=== PATIENT | female | born 1960 | race Caucasian/White ===

== ENCOUNTER 2021-07-08 17:56 | Inpatient (IN) | payer BC ==
[~2021-07-08] VITALS: Ht 160 cm; Wt 69.0 kg
[2021-07-08] MEDS ORDERED: MORPHINE SULFATE 4 MG/ML CPJ (NOT FOR IM USE) IV STA (20:37)
[2021-07-08] MEDS ORDERED: MAGNESIUM/ALUMINUM HYDROXIDE/SIMETHICONE 30ML UDC PO STA (20:37)
[2021-07-08] MEDS ORDERED: FAMOTIDINE 20MG/2ML VIAL IV STA (20:37)
[2021-07-08 20:59] LABS: HEMATOCRIT. 35.8 % (36.0-48.0); HEMOGLOBIN. 12.5 g/dL (12.0-16.0); MEAN CORPUSCULAR HEMOGLOBIN 31.5 pg (28.0-32.0); MEAN CORPUSCULAR VOLUME 90.3 fL (81.0-99.0); MEAN PLATELET VOLUME 7.5 fl (7.4-10.4); PLATELET 303 x1000/uL (130-400); RED BLOOD CELL COUNT 3.97 mill/uL (4.2-5.4); RED CELL DISTRIBUTION WIDTH 13.7 % (11.6-14.6)
[2021-07-08 21:03] LABS: CHLORIDE 91 mEq/L (98-107)
[2021-07-08 21:30] LABS: PLATELET ESTIMATE NORMAL
[2021-07-08] MEDS ORDERED: CEFTRIAXONE 1 G PREMIX 50 ML IV ONE (22:00)
[2021-07-08] MEDS ORDERED: PIPERACILLIN/TAZOBACTAM 3.375GM/50ML PREMIX IV ONE (22:15)
[2021-07-08] MEDS ORDERED: PIPERACILLIN/TAZ 3.375G PREMIX 50 ML IV NR (22:18)
[2021-07-09] MEDS ORDERED: MORPHINE SULFATE 4 MG/ML CPJ (NOT FOR IM USE) IV PRN (02:00)
[2021-07-09] MEDS ORDERED: MORPHINE SULFATE 2 MG/ML CPJ (NOT FOR IM USE) IV PRN ×2 (02:00→05:05)
[2021-07-09] MEDS ORDERED: ONDANSETRON HCL 4MG/2ML INJ IV PRN ×2 (02:00→03:00)
[2021-07-09] MEDS ORDERED: HYDROCODONE/ACETAMINOPHEN 5/325MG TABLET PO PRN ×2 (02:00)
[2021-07-09] MEDS ORDERED: LABETALOL 5MG/ML SYR 20 MG/4 ML SYRINGE IV PRN (03:00)
[2021-07-09] MEDS ORDERED: MEPERIDINE HCL/PF 25MG/ML CPJ IV PRN (03:00)
[2021-07-09] MEDS ORDERED: HYDROMORPHONE HCL/PF 2MG/ML CPJ IV PRN (03:00)
[2021-07-09 04:00] VITALS: BP 102/61
[2021-07-09 04:38] VITALS: BP 102/61
[2021-07-09] MEDS: PIPERACILLIN/TAZOBACTAM 3.375G in DEXT 5% WATER 50ML IV SCH ×3 (05:14→21:22)
[2021-07-09] MEDS: DEXT 5%/0.45% NACL KCL 20MEQ/L 1,000 ML IV SCH ×3 (05:14→21:23)
[2021-07-09] MEDS: SODIUM CHLORIDE 0.9% INJ 3ML FLUSH IVF SCH ×3 (05:15→21:23)
[2021-07-09] MEDS ORDERED: PIPERACILLIN/TAZOBACTAM 3.375 G in DEXTROSE 5% WATER 50 ML IV SCH (06:00)
[2021-07-09 08:00] VITALS: BP 82/45
[2021-07-09 12:00] VITALS: BP 92/50
[2021-07-09 16:00] VITALS: BP 94/65
[2021-07-09 16:06] LABS: HEMATOCRIT. 33.2 % (36.0-48.0); MEAN CORPUSCULAR VOLUME 93.7 fL (81.0-99.0); MEAN PLATELET VOLUME 7.9 fl (7.4-10.4); PLATELET 289 x1000/uL (130-400); RED BLOOD CELL COUNT 3.55 mill/uL (4.2-5.4)
[2021-07-09 16:30] LABS: CHLORIDE 98 mEq/L (98-107)
[2021-07-09 17:12] LABS: PLATELET ESTIMATE NORMAL
[2021-07-09 20:00] VITALS: BP 96/55
[2021-07-10] VITALS: BP 104/60
[2021-07-10 04:00] VITALS: BP 93/45
[2021-07-10] MEDS: SODIUM CHLORIDE 0.9% INJ 3ML FLUSH IVF SCH ×2 (05:21→14:00)
[2021-07-10] MEDS: PIPERACILLIN/TAZOBACTAM 3.375G in DEXT 5% WATER 50ML IV SCH ×2 (05:21→14:00)
[2021-07-10 08:17] VITALS: BP 99/49
[2021-07-10] MEDS: DEXT 5%/0.45% NACL KCL 20MEQ/L 1,000 ML IV SCH (09:05)
[2021-07-10 11:54] VITALS: BP 101/53
[2021-07-10 13:04] VITALS: BP 103/53
== END 2021-07-10 14:00 | disposition home or self-care (01) | DRG 342 ==
LOC: ER 17:56 → MICUSO 23:18 → EDBEDREQTM 23:36 → EDBEDREQ 23:36 → 8WST 07-09 05:01
PROVIDERS: ADMIT Internal Medicine; ATTEND Internal Medicine
PROC: 0DTJ4ZZ Resection of Appendix, Percutaneous Endoscopic Approach (ICD-10-PCS; principal; 2021-07-09)
DX: K35.80 Unspecified acute appendicitis (principal); E87.1 Hypo-osmolality and hyponatremia; E87.8 Other disorders of electrolyte and fluid balance, not elsewhere classified; K80.20 Calculus of gallbladder without cholecystitis without obstruction; F17.200 Nicotine dependence, unspecified, uncomplicated; Z20.822 Contact with and (suspected) exposure to COVID-19
CPT/HCPCS: 36415; 71045; 74176; 76705; 80048; 80053; 83605; 84484; 85025; 86850; 86900; 87426; 88304; 93005; 99285; A6261; J2175; J2270; J2405; J2543; J3490; J7060